=== PATIENT | male | born 1965 | race Caucasian/White ===

== ENCOUNTER 2021-01-26 11:47 | Emergency (ER) | payer OTHER ==
[~2021-01-26] VITALS: Ht 185.4 cm; Wt 82.7 kg
[2021-01-26 11:47] VITALS: BP 130/75
[2021-01-26 12:07] LABS: HEMATOCRIT 42.6 % (42.0-52.0); HEMOGLOBIN 14.7 gm/dL (14.0-18.0); MCH 31.2 pg (26.0-34.0); MCHC 34.5 g/dL (28.0-37.0); MCV 90.5 fL (80.0-100.0); NUCLEATED RBCS 0 /100WBC; PLATELET COUNT* 253 thou/uL (150-400); RDW-CV 13.9 % (10.5-14.5); WBC 10.3 thou/uL (4.0-11.0)
[2021-01-26 12:20] LABS: POTASSIUM 3.3 mmol/L (3.5-5.1)
[2021-01-26 12:29] LABS: ABSOLUTE LYMPHOCYTES 0.5 thou/uL (0.8-5.3); ABSOLUTE MONOCYTES 0.4 thou/uL (0.0-1.2); ABSOLUTE NEUTROPHILS 9.4 thou/uL (1.6-8.1); PLATELET ESTIMATE ADEQUATE
[2021-01-26 12:33] LABS: TOTAL BILIRUBIN 0.3 mg/dL (<0.1-1.0)
[2021-01-26 12:37] LABS: URINE BILIRUBIN NEGATIVE (Negative); URINE BLOOD NEGATIVE (Negative); URINE CLARITY CLEAR; URINE COLOR YELLOW; URINE GLUCOSE-RANDOM 1+ (Negative); URINE KETONES NEGATIVE (Negative); URINE LEUKOCYTES-REFLEX NEGATIVE (Negative); URINE NITRITE-REFLEX POSITIVE (Negative); URINE PROTEIN NEGATIVE (Negative); URINE SPECIFIC GRAVITY >= 1.030 (1.005-1.030); URINE UROBILINOGEN 0.2 E.U./dl (0.2-1.0)
[2021-01-26 12:44] LABS: AMP/METHAMP Negative (Negative); BARBITURATES Negative (Negative); BENZODIAZEPINES Negative (Negative); COCAINE Negative (Negative); METHADONE Negative (Negative); OPIATES Negative (Negative); PCP Negative (Negative); THC Negative (Negative)
[2021-01-26 12:47] LABS: SQUAMOUS 0-3 Few /LPF (0-3); URINE WBC-REFLEX 6-15 Few /HPF (0-5)
[2021-01-26 12:48] LABS: BACTERIA-REFLEX >30 Many /HPF (None Seen); CASTS None Seen /LPF (None Seen); CRYSTALS None Seen /LPF (None Seen); MUCUS 0-3 Light strn/LPF (None Seen); URINE RBC 0-2 Rare /HPF (0-2)
--- NOTE | 2021-01-26 14:27 | NUR ---
BLOOD SUGAR DROPPED TO 44, NOTIFIED DR MELO, AND HE ORDERED AMP D5, AND INCREASE RUNNING DEXTROSE RATE TO 200MLS/HR
--- NOTE | 2021-01-26 14:45 | EKG ---
[place] [address] ELECTROCARDIOGRAM REPORT Name: CHAYA MATTSON Room: [facility]#: [id number] Admission: 01/26/21 Attend Phys: Discharge: Date of : 65 Date of Service: 01/26/21 1209 Report #: [id number] THIS REPORT FOR: //name// [facility] ED Test Date: 2021-01-26 Test Time: 12:09:03 Pat Name: CHAYA MATTSON Department: Room: Gender: Corporate Legal Manager: DENIS : 1965 Requested By: Spencer Teixeira Order Number: [id number] MD: Anderson Head Measurements Intervals [place] Rate: 88 P: 43 FL: 166 QRS: 68 QRSD: 110 T: 44 QT: 388 QTc: 470 Interpretive Statements Sinus rhythm artifact noted Probable left ventricular hypertrophy No previous ECG available for comparison Electronically Signed On 01-26-2021 14:45:24 CDT by Anderson Head [email or web address] <ELECTRONICALLY SIGNED> By: Anderson Head MD, [facility] 01/26/21 1445 1209 1209 Anderson Head MD, FACC /EPI
[2021-01-26 18:45] VITALS: BP 110/57
[2021-01-27 13:07] LABS: C-PEPTIDE 0.2 ng/mL (1.1-4.4); INSULIN 770.7 uIU/mL (2.6-24.9)
== END 2021-01-26 18:55 | disposition short-term general hospital (02) ==
LOC: M.ERS 11:47 → M.TBA-ER 13:15 → M.ERS 18:55
PROVIDERS: Emergency Medicine Emergency Medical Services; Internal Medicine
DX: E16.2 Hypoglycemia, unspecified (principal); Z20.822 Contact with and (suspected) exposure to COVID-19